=== PATIENT | male | born 1995 | race African-American/Black ===

== ENCOUNTER 2021-10-27 16:58 | Emergency (ER) | payer OTHER ==
[~2021-10-27] VITALS: Ht 175.3 cm; Wt 75.0 kg
[2021-10-27 17:30] VITALS: BP_SYST 121
[2021-10-27 18:17] LABS: BASOPHILS % 0.6 % (0.0-2.0); EOSINOPHILS % 0.6 % (0.0-5.0); HEMATOCRIT. 39.5 % (42.0-52.0); HEMOGLOBIN. 13.9 g/dL (14.0-18.0); LYMPHOCYTES % 20.9 % (20.0-50.0); MEAN CORPUSCULAR HEMOGLOBIN 30.5 pg (28.0-32.0); MEAN CORPUSCULAR VOLUME 86.7 fL (80.0-94.0); MEAN PLATELET VOLUME 8.5 fl (7.4-10.4); MONOCYTES % 7.5 % (2.0-8.0); NEUTROPHILS % 70.4 % (40.0-76.0); PLATELET 283 x1000/uL (130-400); RED BLOOD CELL COUNT 4.55 mill/uL (4.7-6.1)
[2021-10-27 18:23] LABS: CHLORIDE 103 mEq/L (98-107)
[2021-10-27 20:13] VITALS: BP_DIAS 66
== END 2021-10-27 20:17 | disposition home or self-care (01) ==
LOC: ER 16:58
DX: R55 Syncope and collapse (principal)
CPT/HCPCS: 36415; 71045; 80053; 82962; 85025; 93005; 99285